=== PATIENT | male | born 1965 | race Caucasian/White ===

== ENCOUNTER 2022-06-04 09:52 | Inpatient (IN) | payer BC, SELFPAY ==
[2022-06-04] VITALS (12 sets, daily range): BP systolic 152–182; BP diastolic 90–105; PULSE 79–90; RESP 12–18; TEMP 36.7–37.2; O2SAT 96–98; BMI 34.7; BMI 33.3
--- NOTE | 2022-06-04 10:07 | RAD_ITS ---
EXAM: XR CHEST, 1 VIEW CLINICAL INDICATION: Neuro deficit, acute, stroke suspected TECHNIQUE: Frontal view of the chest. This report was created using ControlScan report generation technology. COMPARISON: None. FINDINGS: LUNGS AND PLEURAL SPACES: Unremarkable. No consolidation or edema. No pneumothorax. No effusion. HEART: Unremarkable. Cardiac silhouette not enlarged. MEDIASTINUM: Central airways and mediastinal contour are unremarkable. BONES/JOINTS: Unremarkable. SOFT TISSUES: Unremarkable. RAD/Chest 1 View IMPRESSION: No acute cardiopulmonary abnormality. Electronically Signed: Stevie Espino MD at 10:41 EDT ,
--- NOTE | 2022-06-04 10:07 | CT_ITS ---
EXAM: CT HEAD WITHOUT INTRAVENOUS CONTRAST CLINICAL INDICATION: Neuro deficit, acute, stroke suspected TECHNIQUE: Multiple axial images were obtained of the head without intravenous contrast. This CT exam was performed using one or more of the following dose reduction techniques: automated exposure control, adjustment of the mA and/or kV according to patient size, and/or use of iterative reconstruction technique. This report was created using Support[employer] report generation technology. COMPARISON: None. FINDINGS: BRAIN AND EXTRA-AXIAL SPACES: Unremarkable. No intra- or extra-axial hemorrhage. No evidence of acute infarct. No intracranial mass or mass effect. There is preservation of the joseph/white matter interface. Posterior fossa structures are unremarkable. Ventricles are appropriate for age. No hydrocephalus. Basal cisterns are patent. BONES/JOINTS: Unremarkable. No discrete lytic or blastic abnormalities. SINUSES: Mucosal thickening bilateral ethmoid sinuses and left maxillary sinus. Retention cysts right maxillary sinus. MASTOID AIR CELLS: Unremarkable. Clear. ORBITS: Visualized globes, extraocular muscles, optic nerves and retrobulbar fat appear unremarkable. CT/STROKE Brain/Head without Cont IMPRESSION: 1. No acute intracranial abnormality. 2. Mucosal thickening bilateral ethmoid sinuses and left maxillary sinus. Retention cysts right maxillary sinus. ASSESSMENT: ASPECTS ([place] Stroke Program Early CT Score) is 10. N.B. : The above Results were Read Back by Stevie Espino MD to Martínez Jefferson MD, and understanding confirmed on 06/04/2022 10:38:16 (ET). Electronically Signed: Stevie Espino MD at 10:38 EDT ,
--- NOTE | 2022-06-04 10:08 | CT_ITS ---
EXAM: CT ANGIOGRAPHY HEAD AND NECK WITH INTRAVENOUS CONTRAST CLINICAL INDICATION: diplopia TECHNIQUE: [place] [facility] [place]/head and neck CT angiography protocol performed with intravenous contrast. This CT exam was performed using one or more of the following dose reduction techniques: automated exposure control, adjustment of the mA and/or kV according to patient size, and/or use of iterative reconstruction technique. This report was created using D1G report generation technology. MIP reconstructed images were created and reviewed. CONTRAST: 100 cc of Isovue-370 IV. RADIATION DOSE: CTDIvol = 32.88 mGy, DLP = 735.37 mGy-cm. COMPARISON: None. FINDINGS: HEAD: RIGHT ANTERIOR CEREBRAL ARTERY: Unremarkable. No significant stenosis at the visualized segments. Anterior communicating artery is present. No aneurysm. RIGHT MIDDLE CEREBRAL ARTERY: Unremarkable. No significant stenosis at the visualized segments. No aneurysm. RIGHT POSTERIOR CEREBRAL ARTERY: Arises primarily from the right internal carotid artery. No occlusion or significant stenosis. No aneurysm. RIGHT INTRACRANIAL INTERNAL CAROTID ARTERY: Unremarkable. No significant stenosis. No dissection or occlusion. RIGHT INTRACRANIAL VERTEBRAL ARTERY: Terminates as the right posterior inferior cerebellar artery. No significant stenosis. No dissection or occlusion. LEFT ANTERIOR CEREBRAL ARTERY: Unremarkable. No significant stenosis at the visualized segments. No aneurysm. LEFT MIDDLE CEREBRAL ARTERY: Unremarkable. No significant stenosis at the visualized segments. No aneurysm. LEFT POSTERIOR CEREBRAL ARTERY: Arises primarily from the left internal carotid artery. No occlusion or significant stenosis. No aneurysm. LEFT INTRACRANIAL INTERNAL CAROTID ARTERY: Unremarkable. No significant stenosis. No dissection or occlusion. LEFT INTRACRANIAL VERTEBRAL ARTERY: Unremarkable. No significant stenosis. No dissection or occlusion. BASILAR ARTERY: Small basilar artery. No significant stenosis. No aneurysm. OTHER VASCULATURE: See below. NECK: RIGHT COMMON CAROTID ARTERY: Unremarkable. No significant stenosis. No dissection or occlusion. RIGHT EXTRACRANIAL INTERNAL CAROTID ARTERY: Moderate atherosclerotic changes right carotid bulb without hemodynamically significant stenosis. No dissection or occlusion. RIGHT EXTERNAL CAROTID ARTERY: Unremarkable. No occlusion. RIGHT EXTRACRANIAL VERTEBRAL ARTERY: Small caliber. No significant stenosis. No dissection or occlusion. LEFT COMMON CAROTID ARTERY: Unremarkable. No significant stenosis. No dissection or occlusion. LEFT EXTRACRANIAL INTERNAL CAROTID ARTERY: Moderate atherosclerotic changes left carotid bulb without hemodynamically significant stenosis. No dissection or occlusion. LEFT EXTERNAL CAROTID ARTERY: Unremarkable. No occlusion. LEFT EXTRACRANIAL VERTEBRAL ARTERY: Dominant. No significant stenosis. No dissection or occlusion. BRACHIOCEPHALIC AND SUBCLAVIAN ARTERIES: Unremarkable as visualized. No occlusion or significant stenosis. LUNG APICES: Unremarkable as visualized. HEAD and NECK: BONES/JOINTS: Unremarkable. No discrete lytic or blastic abnormalities. SOFT TISSUES: Unremarkable. CAROTID STENOSIS REFERENCE USING NASCET CRITERIA: % ICA stenosis = (1 - narrowest ICA diameter/diameter of distal cervical ICA) x 100. Mild - <50% stenosis. Moderate - 50-69% stenosis. Severe - 70-94% stenosis. Near occlusion - 95-99% stenosis. Occluded - 100% stenosis. CT/CTA Head AND Neck W/ Contrast IMPRESSION: 1. Moderate atherosclerotic changes right carotid bulb without hemodynamically significant stenosis. 2. Moderate atherosclerotic changes left carotid bulb without hemodynamically significant stenosis. 1. No large vessel occlusion or acute abnormality. 4. origin of the bilateral posterior cerebral arteries. 5. The right vertebral artery terminates as the posterior inferior cerebellar artery. Electronically Signed: Stevie Espino MD at 11:01 EDT ,
--- NOTE | 2022-06-04 10:09 | ED.VIS.STROK ---
HPI History of Present Illness Chief Complaint: Neuro S/Sx Informant: patient and spouse/S.O. Onset/Context/Timing Onset: Yesterday Narrative Narrative: Patient states yesterday while he was at the gas station walking around to the back of his vehicle started noticing his vision was off. In evaluating it further, he noticed it was double vision, if he covers either one of his eyes his vision is normal, but together he is seeing double. When he turns his head to the left and is looking at a visual target that is relatively straight ahead, the double vision improves, and when he focuses on the same target turning his head all the way to the right it worsens. Yesterday evening and seem to improve while he was watching TV and things seem normal but worse again this morning. He denies any visual field loss. He denies any headache, chest pain, shortness of breath, or any peripheral neurologic symptoms. No recent illness or fall/injury. He states he has felt a little off balance and his lower lip felt a little funny earlier but he denies any numbness. Yesterday after he arrived home within an hour or 2 of the onset of the symptoms, he significant other checked his blood pressure for him and it was over 200. He does have the symptoms right now and here initial blood pressure 178/105. He states he has a coronary stent and is prescribed Brilinta, aspirin, blood pressure medication, but he has not been taking any of those medications for months, he states initially he was forgetting doses, then he ran out of the medication, and just never refilled any of it. The last time he checked his blood pressure prior to yesterday was months ago. He has been feeling fine otherwise. [facility] Medical History (Updated 06/04/22 @ 11:[address] Martínez Jefferson MD) CAD (coronary artery disease) HTN (hypertension) Home Medications atorvastatin 10 mg tablet (Lipitor) mg PO QHS 06/04/22 [History Last Taken Unknown] lisinopril 10 mg tablet 10 mg PO DAILY 06/04/22 [History Last Taken Unknown] lisinopril 20 mg tablet 20 mg PO QHS 06/04/22 [History Last Taken Unknown] metoprolol tartrate 25 mg tablet mg PO BID 06/04/22 [History Last Taken Unknown] ticagrelor 90 mg tablet (Brilinta) 90 mg PO BID 06/04/22 [History Last Taken Unknown] Allergy/AdvReac Type Severity Reaction Status Date / Time No Known Allergies Allergy Verified 06/04/22 09:53 Surgical History (Updated 06/04/22 @ 10:[address] Martínez Jefferson MD) History of coronary artery stent placement Social History Smoking Status: Never smoker ROS ROS ED Constitutional Constitutional ED: Denies chills or fever(s) Eyes Eyes: Reports change in vision and diplopia; Denies blurry vision or tunnel vision ENT ENT ED: Denies rhinorrhea or sore throat Cardiovascular Cardiovascular: Denies chest pain or palpitations Respiratory/Chest Respiratory/Chest: Denies cough or dyspnea Gastrointestinal Gastrointestinal: Denies abdominal pain, diarrhea, nausea or vomiting Genitourinary Genitourinary ED: Denies dysuria or hematuria Musculoskeletal Musculoskeletal: Denies back pain or neck pain Integumentary Denies abscess or rash Neurologic Neurologic: Reports as per HPI and disequilibrium; Denies headache(s), paresthesias or weakness Psychiatric Psychiatric: Denies anxiety or suicidal thoughts EXAM Physical Exam Const Vital Signs: 06/04/22 09:54 06/04/22 10:16 06/04/22 10:17 Temperature 98.4 F Temperature Source Temporal Pulse Rate 87 90 Respiratory Rate 16 18 Blood Pressure 178/105 H 152/93 H Blood Pressure Mean 129 112 Pulse Ox 98 97 96 Oxygen Delivery Method Room Air Room Air Room Air 06/04/22 10:47 06/04/22 11:14 Temperature Temperature Source Pulse Rate 83 83 Respiratory Rate 12 14 Blood Pressure 163/93 H 160/93 H Blood Pressure Mean 116 115 Pulse Ox 98 98 Oxygen Delivery Method Room Air Room Air Positive well nourished and well developed General Appearance ED: well developed and NAD HEENT Reports moist mucous membranes normocephalic and atraumatic Eyes PERRL and EOMs intact bilaterally Neck full ROM and supple Resp normal respiratory effort and clear to auscultation bilaterally Cardio regular rate, regular rhythm and no murmurs GI non-tender and non-distended Auscultation: normoactive bowel sounds Palpation: soft Back/Spine no CVA tenderness General Back: other FROM Extremity normal to inspection General Extremety ED: Negative for edema, pulses abnormal or tenderness General Extremity: Negative for edema or pulses abnormal Neuro oriented x3, CN's II-XII intact bilaterally, no sensory deficits noted and gait normal Neuro Narrative: Normal ROM chest. Normal [id number] and [id number]-[id number] bilaterally. Normal speech no aphasia or dysarthria. Normal visual pimentel exam. Sensorium / Orientation: awake and alert Motor Exam: strength 5/5 throughout Skin no rashes or lesions noted and no wounds NIHSS NIHSS Initial: 1a Level of Consciousness: 0 1b LOC Questions (Score 2 if aphasic/stupor): 0 1c LOC Commands (Only score 1st attempt): 0 2 Best Gaze (If aphasic, use reflexive mvmts.): 0 3 Visual: 0 4 Facial Palsy: 0 5 Motor Arm Right (UN = amputation/fusion): 0 5 Motor Arm Left: 0 6 Motor Leg Right: 0 6 Motor Leg Left: 0 7 Limb ataxia (Only + if out of proportion): 0 8 Sensory (Aphasia/stupor=0 or 1, coma=2): 0 9 Best Language: 0 10 Dysarthria (mute, coma=2, intubated=UN): 0 11 Extinction and Inattention (only scored if +): 0 Total Score: 0 MDM MDM MDM Narrative Medical decision making narrative: Patient was worked up with regards to his heart and possible stroke work-up, given his blood pressure and symptoms. CT and CTA were negative for any acute, I reviewed the images in the radiologist's interpretation. My interpretation of the CT agrees with that of the radiologist. His EKG shows a bifascicular block, there is no old available to compare with, he saw a log buncher at [facility] remotely and never followed up basically and stopped taking his medications, and has never had an EKG here. His heart enzymes are slightly elevated and his creatinine is slightly elevated, again without an old value to compare with. At this time he has no symptoms of angina and the significance of this is undetermined at this time. His blood pressure came down a little with observation while waiting for test results, he is now in the 160s and states that his vision is back to normal. It certainly may be blood pressure mediated, however my recommendation to him would be to stay to get an MRI of the brain, continued observation, blood pressure management, and trending of his troponin. He is amenable to that. Discussed with hospitalist. History & Record Review Additional record(s) reviewed:: No prior records Lab Data Attestation: I reviewed the patient's lab results. Labs: Laboratory Results - last 24 hr 06/04/22 06/04/22 06/04/22 10:15 10:15 10:15 WBC 11.0 RBC 7.88 H Hgb 15.9 Hct 52.3 MCV 66.4 L MCH 20.2 L MCHC 30.4 L RDW Std Deviation 38.5 RDW Coeff of Jacqueline 19.0 H Plt Count 286 MPV 10.8 Immature Gran % (Auto) 0.500 Neut % (Auto) 72.3 H Lymph % (Auto) 16.9 L [place] % (Auto) 8.3 Eos % (Auto) 1.3 Baso % (Auto) 0.7 Absolute Neuts (auto) 8.0 H Absolute Lymphs (auto) 1.86 Nucleated RBC % 0 PT 14.6 INR 1.2 APTT 29.1 Sodium 136 Potassium 4.2 Chloride 104 Carbon Dioxide 25.0 Anion Gap 7 BUN 16 Creatinine 1.37 H Estim Creat Clear Calc 54.33 Est GFR (MDRD) Af Amer 69 Est GFR (MDRD) Non-Af 57 L BUN/Creatinine Ratio 11.7 Glucose 125 H Calcium 9.5 Troponin I High Sens 99 H POC Glucose 06/04/22 10:18 WBC RBC Hgb Hct MCV MCH MCHC RDW Std Deviation RDW Coeff of Jacqueline Plt Count MPV Immature Gran % (Auto) Neut % (Auto) Lymph % (Auto) [place] % (Auto) Eos % (Auto) Baso % (Auto) Absolute Neuts (auto) Absolute Lymphs (auto) Nucleated RBC % PT INR APTT Sodium Potassium Chloride Carbon Dioxide Anion Gap BUN Creatinine Estim Creat Clear Calc Est GFR (MDRD) Af Amer Est GFR (MDRD) Non-Af BUN/Creatinine Ratio Glucose Calcium Troponin I High Sens POC Glucose 129 H Radiography Chest X-Ray - ED: 1 View, Read by ED Physician, No Acute Disease and No Infiltrates Diagnostic Testing: Clinical Impression(s) from Imaging Studies Brain CT 06/04/22 10:07 IMPRESSION: 1. No acute intracranial abnormality. 2. Mucosal thickening bilateral ethmoid sinuses and left maxillary sinus. Retention cysts right maxillary sinus. ASSESSMENT: ASPECTS ([place] Stroke Program Early CT Score) is 10. N.B. : The above Results were Read Back by Stevie Espino MD to Martínez Jefferson MD, and understanding confirmed on 06/04/2022 10:38:16 (ET). Electronically Signed: Stevie Espino MD at 10:38 EDT , ADDENDUM: 06/04/22 1045 IMPRESSION: 1. No acute intracranial abnormality. 2. Mucosal thickening bilateral ethmoid sinuses and left maxillary sinus. Retention cysts right maxillary sinus. ASSESSMENT: ASPECTS ([place] Stroke Program Early CT Score) is 10. N.B. : The above Results were Read Back by Stevie Espino MD to Martínez Jefferson MD, and understanding confirmed on 06/04/2022 10:38:16 (ET). Electronically Signed: Stevie Espino MD at 10:38 EDT , Chest X-Ray 06/04/22 10:07 IMPRESSION: No acute cardiopulmonary abnormality. Electronically Signed: Stevie Espino MD at 10:41 EDT , Head/Neck CTA 06/04/22 10:08 IMPRESSION: 1. Moderate atherosclerotic changes right carotid bulb without hemodynamically significant stenosis. 2. Moderate atherosclerotic changes left carotid bulb without hemodynamically significant stenosis. 1. No large vessel occlusion or acute abnormality. 4. origin of the bilateral posterior cerebral arteries. 5. The right vertebral artery terminates as the posterior inferior cerebellar artery. Electronically Signed: Stevie Espino MD at 11:01 EDT , Rhythm Strip Rhythm Strip: Sinus Rhythm Rate: 90 Ectopy: None EKG Initial EKG: Attestation: I personally reviewed and interpreted this EKG as follows: Interpretation: Sinus Rhythm, No Acute Injury Pattern, RBBB and LAFB Prior EKG tracings: not available for review Prior: No Prior Management Discussion w/another healthcare provider: Hospitalist Stroke Documentation Questions Stroke Team Activated: No (timing > 24h) IV Thrombolytic Administered: No Discharge Plan Dx/Rx/DC Orders Clinical Impression: Diplopia, Accelerated hypertension, Elevated troponin, Acute renal insufficiency Disposition Disposition: Acute Care Hospital [facility]
[2022-06-04 10:26] LABS: Absolute Lymphocyte Count 1.86 X10^3/uL (0.83-4.51); Basophil# 0.08 X10^3/uL; Basophil% 0.7 % (0-1); Eosinophil# 0.14 X10^3/uL; Eosinophils% 1.3 % (0-5); Hematocrit 52.3 % (40-54); Hemoglobin 15.9 g/dL (13.0-16.5); Lymphocyte # 1.86 X10^3/ul (0.83-4.51); Lymphocyte % 16.9 % (19-41); Mean Corp Hgb Conc 30.4 g/dL (32-36); Mean Corpuscular Hgb 20.2 pg (27.0-32.0); Mean Corpuscular Volume 66.4 fL (80-94); Mean Platelet Vol. 10.8 fl (6.2-12.0); Monocyte# 0.91 X10^3/uL; Monocyte% 8.3 % (0-10); NRBC Flagged by Analyzer 0 % (0-5); Neutrophil # 7.95 X10^3/uL (2.7-7.7); Neutrophil % 72.3 % (47-70); Platelet Count 286 K/mm3 (150-450); RBC Distribution Width SD 38.5 fl (35.1-43.9); Red Blood Count 7.88 M/mm3 (4.6-6.2)
[2022-06-04 10:40] LABS: Anion Gap 7 (5-15); BUN 16 mg/dL (7-18); BUN/Creat Ratio 11.7 RATIO (10-20); Calcium,Total 9.5 mg/dL (8.5-10.1); Chloride 104 mmol/L (98-107); Creatinine, Serum 1.37 mg/dL (0.70-1.30); EST Glomerular Filtration Rate 57 mL/min (>60); Est Glom Filt Rate - Afr Amer 69 mL/min (>60); Estimated Creatinine Clearance 54.33 ml/min; Glucose 125 mg/dL (74-106); Potassium 4.2 mmol/L (3.5-5.1); Sodium Level 136 mmol/L (136-145); Troponin-I HS 99 pg/mL (3.0-78.0)
[2022-06-04 10:40] LABS: Bedside Glucose 129 mg/dL (74-106)
[2022-06-04 10:51] LABS: International Normalized Ratio 1.2; Prothrombin Time (Protime)PT. 14.6 SECONDS (11.7-14.9)
[2022-06-04 10:52] LABS: Partial Thromboplast Time 29.1 Seconds (24.1-36.2)
--- NOTE | 2022-06-04 11:35 | HP.PCM.HOS_ITS ---
HPI - General General Date of Admission: 06/04/22 Date of Service: 06/04/22 Chief Complaint: neuro symptoms HPI Narrative HUONG UNDERWOOD, is a 57 M with a PMH as outlined who presents via the ED on 06/04/2022 with a complaitn of double vision. He says he was walking to his car at the gas station and subsequently realised his vision was impaired. HE was hving double vision which occured when both eyes were opened. He denied any slurred speech, chest pain, weakness in any extremities, numbness or tingling. He hadnt had such symptoms before. Review of systems is otherwise negative. Patient also says his symptoms occurred yesterday and he went home afterwards. His significant other checked his blood pressure and was markedly elevated at over 200 systolic. Patient does have a history of CAD with stent placement but has not been taking any of his antiplatelets or blood pressure medications for several months. Vitals in the ED at time of review were blood pressure 160/93, pulse of 83 and respiratory rate of 14. He was saturating at 98% on room air. CBC showed hemoglobin of 15.9 and WBC of 11 as well as platelets of 286. INR was 1.2. Chemistry shows sodium of 136 and creatinine of 1.37 and potassium of 4.2. Initial troponin was 99. CT of the brain showed no acute intracranial pathology and showed mucosal thickening of bilateral ethmoid sinuses and left maxillary sinus. CT of the head and neck showed moderate atherosclerotic changes of the carotid bulbs bilaterally, without hemodynamically significant stenosis and no large vessel occlusion or acute abnormality. He has been admitted to be managed for diplopia concerning for CVA as well as hypertensive urgency and elevated troponins. [facility] Medical History (Updated 06/04/22 @ 14:[address] Colleen Blanco MD) CAD (coronary artery disease) HTN (hypertension) Home Medications atorvastatin 40 mg tablet 80 mg PO DAILY CHOLESTEROL 06/04/22 [History Last Ej en Unknown] lisinopril 10 mg tablet 10 mg PO DAILY BP 06/04/22 [History Last Taken Unknown] lisinopril 20 mg tablet 20 mg PO DAILY BP 06/04/22 [History Last Taken 06/04/22] metoprolol tartrate 25 mg tablet 25 mg PO BID HEART 06/04/22 [History Last Taken Unknown] ticagrelor 90 mg tablet (Brilinta) 90 mg PO BID BLOOD THINNER 06/04/22 [History Last Taken Unknown] Allergy/AdvReac Type Severity Reaction Status Date / Time No Known Allergies Allergy Verified 06/04/22 09:53 Surgical History (Updated 06/04/22 @ 10:[address] Martínez Jefferson MD) History of coronary artery stent placement Social History Smoking Status: Current every day smoker tobacco type: cigarettes ROS Constitutional Constitutional: Denies anorexia, chills, fatigue, fever(s) or weakness Eyes Eyes: Reports change in vision and other Details: Double vision ENT HEENT: Denies dysphagia, headache(s), hearing loss, nasal congestion, sinus pressure or sore throat Cardiovascular Cardiovascular: Denies chest pain, dyspnea on exertion, edema, lightheadedness, orthopnea, palpitations, rapid heart rate or syncope Respiratory/Chest Respiratory/Chest: Denies cough, dyspnea, productive cough, shortness of breath at rest or shortness of breath with exertion Gastrointestinal Gastrointestinal: Denies abdominal pain, constipation, diarrhea, nausea or vomiting Genitourinary Genitourinary: Denies burning urination, dysuria or urinary urgency Musculoskeletal Musculoskeletal: Denies arthralgias, back pain or joint pain Neurologic Neurologic: Denies confusion, disequilibrium, dizziness, focal weakness, headache(s), seizures or syncope Psychiatric Psychiatric: Denies anxiety or depression Hematologic/Lymphatic Hematologic/Lymphatic: Denies anemia Vital Signs Vital Signs Vital Signs: 06/04/22 09:54 06/04/22 10:16 06/04/22 10:17 Temperature 98.4 F Temperature Source Temporal Pulse Rate 87 90 Respiratory Rate 16 18 Blood Pressure 178/105 H 152/93 H Blood Pressure Mean 129 112 Pulse Ox 98 97 96 Oxygen Delivery Method Room Air Room Air Room Air 06/04/22 10:47 06/04/22 11:14 Temperature Temperature Source Pulse Rate 83 83 Respiratory Rate 12 14 Blood Pressure 163/93 H 160/93 H Blood Pressure Mean 116 115 Pulse Ox 98 98 Oxygen Delivery Method Room Air Room Air Weight Weight: 215 lb 3.197 oz Body Mass Index (BMI) 34.7 Physical Exam Const alert, oriented x3 and no apparent distress General Appearance: cooperative HEENT normocephalic, head/scalp atraumatic, hearing grossly normal bilaterally and moist oral mucous membranes Mouth: oral and palatal mucosa normal Eyes PERRL, EOMs intact bilaterally and conjunctivae normal Neck no lymphadenopathy, supple and no JVD Resp normal respiratory effort, no retractions, no use of accessory muscles and clear to auscultation bilaterally Cardio regular rate, regular rhythm, S1 normal heart sound, S2 normal heart sound and no murmurs GI normal to inspection, nondistended, normoactive bowel sounds, soft to palpation, non-tender and non-distended Extremity normal to inspection, full ROM and no clubbing, cyanosis or edema Neuro oriented x3, moves all extremities and no focal motor deficits Neuro Narrative: Patient having diplopia. States when both eyes are open he has double vision. However the diplopia does not occur when he has just one eye open Sensorium / Orientation: awake and alert Motor Exam: strength 5/5 throughout Psych affect normal Results Lab / Micro Data Result Diagrams: 06/04/22 10:15 06/04/22 10:15 Labs: Laboratory Results - last 24 hr 06/04/22 10:15: WBC 11.0, RBC 7.88 H, Hgb 15.9, Hct 52.3, MCV 66.4 L, MCH 20.2 L , MCHC 30.4 L, RDW Std Deviation 38.5, RDW Coeff of Jacqueline 19.0 H, Plt Count 286, MPV 10.8, Immature Gran % (Auto) 0.500, Neut % (Auto) 72.3 H, Lymph % (Auto) 16.9 L, Adams % (Auto) 8.3, Eos % (Auto) 1.3, Baso % (Auto) 0.7, Absolute Neuts (auto) 8.0 H, Absolute Lymphs (auto) 1.86, Nucleated RBC % 0 06/04/22 10:15: PT 14.6, INR 1.2, APTT 29.1 06/04/22 10:15: Sodium 136, Potassium 4.2, Chloride 104, Carbon Dioxide 25.0, Anion Gap 7, BUN 16, Creatinine 1.37 H, Estim Creat Clear Calc 54.33, Est GFR (MDRD) Af Amer 69, Est GFR (MDRD) Non-Af 57 L, BUN/Creatinine Ratio 11.7, Glucose 125 H, Calcium 9.5, Troponin I High Sens 99 H 06/04/22 10:18: POC Glucose 129 H Rhythm Strip Rhythm Strip: Sinus Rhythm Rate: 90 Ectopy: None Radiology Impression Brain CT 06/04/22 10:07 IMPRESSION: 1. No acute intracranial abnormality. 2. Mucosal thickening bilateral ethmoid sinuses and left maxillary sinus. Retention cysts right maxillary sinus. ASSESSMENT: ASPECTS ([place] Stroke Program Early CT Score) is 10. N.B. : The above Results were Read Back by Stevie Espino MD to Martínez Jefferson MD, and understanding confirmed on 06/04/2022 10:38:16 (ET). Electronically Signed: Stevie Espino MD at 10:38 EDT , ADDENDUM: 06/04/22 1045 IMPRESSION: 1. No acute intracranial abnormality. 2. Mucosal thickening bilateral ethmoid sinuses and left maxillary sinus. Retention cysts right maxillary sinus. ASSESSMENT: ASPECTS ([place] Stroke Program Early CT Score) is 10. N.B. : The above Results were Read Back by Stevie Espino MD to Martínez Jefferson MD, and understanding confirmed on 06/04/2022 10:38:16 (ET). Electronically Signed: Stevie Espino MD at 10:38 EDT , Chest X-Ray 06/04/22 10:07 IMPRESSION: No acute cardiopulmonary abnormality. Electronically Signed: Stevie Espino MD at 10:41 EDT , Head/Neck CTA 06/04/22 10:08 IMPRESSION: 1. Moderate atherosclerotic changes right carotid bulb without hemodynamically significant stenosis. 2. Moderate atherosclerotic changes left carotid bulb without hemodynamically significant stenosis. 1. No large vessel occlusion or acute abnormality. 4. origin of the bilateral posterior cerebral arteries. 5. The right vertebral artery terminates as the posterior inferior cerebellar artery. Electronically Signed: Stevie Espino MD at 11:01 EDT , Assessment & Plan Assessment/Plan (1) Elevated troponin: (2) Diplopia: (3) Acute renal insufficiency: (4) Hypertensive urgency: PLAN: Plan #Diplopia * new onset, concerning for posterior circulation stroke * admit to PCU * Symptoms started yesterday and has persisted. His blood pressure when his spouse checked was also markedly elevated at around 220 systolic. * Diplopia could also be due to malignant hypertension * CT of the brain showed no acute intracranial pathology. CT of the head and neck also showed no hemodynamically significant stenosis * Will order MRI of the brain tomorrow to rule out a stroke conclusively * Hold BP meds for now. IV labetalol per stroke protocol to bring down blood pressure slowly. PT OT consulted. Fall precautions. 2D echo ordered. * To consult neurology based on results of MRI. * #Hypertensive urgency * Blood pressure was markedly elevated yesterday at more than 1020 systolic. Patient did not come into the ED then * He does have a history of hypertension but says he has not taken his medicati on for several months. * On lisinopril and metoprolol at home. We will hold these in light of concern about stroke. IV labetalol as needed to bring down blood pressure slowly as per stroke protocol. * Blood pressure was 178/102 at time of review. * 2D echo ordered. Resume blood pressure medications tomorrow if MRI of the brain is negative for stroke. * #Elevated troponin * Initial troponin is 99. Patient denies any chest pain. The elevated troponin may possibly be due to troponin leak from markedly elevated blood pressure. * We will cycle troponins. Already on aspirin and Brilinta as he has a history of CAD with stents placement in 2013. * will resume aspirin and Brilinta as well as statin. * 2D echo ordered * #Hyperlipidemia: on statin DVT prophylaxis: lovenox. Code status; full code * Patient counseled extensively about different types of CODE STATUS including full code, DNR CCA and DNR CCA. Patient elects to be full code. * Total [id number] time 17 minutes. Total time spent on evaluation and management of patient, reviewing chart and specialist notes, discussing plan with patient and his , discussion with nursing and ancillary staff as well as documentation: 79 mins Charges/Coding Visit Charges Inpatient E&M: 79361 Init Hosp L3 Procedures Hospitalists Procedures: 01748 Advncd Care Plan 30 Min
--- NOTE | 2022-06-04 12:30 | ED.RN ---
PT NIH REMAINS 0. PER DR. HODGE, PT NIH REMAINS 0 AND NIH CAN BE CANCELLED.
--- NOTE | 2022-06-04 14:12 | MRI_ITS ---
STUDY: MRI BRAIN WITHOUT CONTRAST REASON FOR EXAM: Male, 57 years old. diplopia TECHNIQUE: Standardized multiplanar fat and water weighted pulse sequences were obtained. COMPARISON: Head CT dated June 04, 2022 FINDINGS: Normal size of the ventricles and extra-axial spaces for the patient''s age. There are a limited number of small white matter hyperintensities, distributed throughout the deep white matter tracts of the cerebral hemispheres, consistent with mild chronic white matter ischemic changes. There is no evidence for recent intracranial ischemia or other cause of cytotoxic edema on diffusion weighted imaging (DWI). Normal T2* images of the brain without demonstrated susceptibility artifact. There is no demonstrated hemosiderin stain. There are no demyelinating plagues of the supratentorial brain, brainstem or cerebellum. There are no findings suspicious for multiple sclerosis (MS). Normal bilateral basal ganglia. Normal thalami. There is no extra-axial fluid accumulation. Normal flow voids within the major intracranial circulation suggesting patency by spin echo criteria. Normal sella turcica, pituitary gland, infundibular stalk, optic chiasm and hypothalamus. Normal tectal plate and pineal gland. Normal midbrain, deonna and medulla. Normal cerebellum. Normal basal cisterns. Normal bilateral temporal bones. Normal bilateral internal auditory canals. No demonstrated orbital abnormality, within the constraints of a routine brain study. Moderate mucus opacification of the bilateral ethmoid air cells and a moderate-sized mucus retention cyst of the right maxillary sinus. Normal calvarium and skull base. Normal visualized soft tissue structures. Normal visualized upper cervical spine. MRI/Brain without Contrast IMPRESSION: 1. Involutional and mild chronic ischemic changes of the brain, as described above. 2. No demonstrated acute infarct or intracranial hemorrhage or significant abnormality 3. Moderate mucus opacification of the bilateral ethmoid air cells and a moderate-sized mucus retention cyst of the right maxillary sinus. Electronically Signed: Yuniel Smith MD at 13:19 EDT Reading Location ID and State: [facility] / [place] , Service support ,
[2022-06-04 15:11] LABS: Troponin-I HS 81 pg/mL (3.0-78.0)
[2022-06-04 15:29] LABS: Hemoglobin A1c 5.7 % (3.8-5.6)
[2022-06-04 17:19] LABS: Troponin-I HS 77 pg/mL (3.0-78.0)
[2022-06-04] MEDS: TICAGRELOR 90 MG TABLET PO (21:01)
[2022-06-04] MEDS: Atorvastatin Calcium 80 MG Tablet PO (21:02)
[2022-06-05 00:58] VITALS: BP 146/96; PULSE 76; RESP 18; TEMP 36.5; O2SAT 99
[2022-06-05 01:24] VITALS: BMI 33.3
[2022-06-05 04:58] VITALS: BP 119/88; PULSE 67; RESP 16; TEMP 36.4; O2SAT 98
[2022-06-05 05:00] VITALS: BMI 33.3
[2022-06-05 06:03] LABS: Anion Gap 7 (5-15); BUN 18 mg/dL (7-18); BUN/Creat Ratio 14.9 RATIO (10-20); Calcium,Total 9.2 mg/dL (8.5-10.1); Chloride 105 mmol/L (98-107); Cholesterol 223 mg/dL (200); Creatinine, Serum 1.21 mg/dL (0.70-1.30); EST Glomerular Filtration Rate 66 mL/min (>60); Est Glom Filt Rate - Afr Amer 80 mL/min (>60); Estimated Creatinine Clearance 61.52 ml/min; Glucose 115 mg/dL (74-106); High Density Lipoprotein 32 mg/dL; Potassium 4.1 mmol/L (3.5-5.1); Sodium Level 137 mmol/L (136-145); Triglycerides 194 mg/dL; Very Low Density Lipoprotein 39 mg/dL (5-40)
[2022-06-05 06:19] LABS: Absolute Lymphocyte Count 2.95 X10^3/uL (0.83-4.51); Absolute Neutrophil Count 7.7 X10^3/uL (2.0-7.7); Basophil# 0.08 X10^3/uL; Basophil% 0.7 % (0-1); Eosinophil# 0.25 X10^3/uL; Eosinophils% 2.1 % (0-5); Hematocrit 51.2 % (40-54); Hemoglobin 15.6 g/dL (13.0-16.5); Lymphocyte # 2.95 X10^3/ul (0.83-4.51); Lymphocyte % 24.2 % (19-41); Mean Corp Hgb Conc 30.5 g/dL (32-36); Mean Corpuscular Hgb 20.3 pg (27.0-32.0); Mean Corpuscular Volume 66.5 fL (80-94); Mean Platelet Vol. 10.9 fl (6.2-12.0); Monocyte# 1.13 X10^3/uL; Monocyte% 9.3 % (0-10); NRBC Flagged by Analyzer 0 % (0-5); Neutrophil # 7.71 X10^3/uL (2.7-7.7); Neutrophil % 63.1 % (47-70); Platelet Count 282 K/mm3 (150-450); RBC Distribution Width CV 18.8 % (11.6-14.6); White Blood Count 12.2 K/mm3 (4.4-11.0)
[2022-06-05 08:30] VITALS: BP 164/99; PULSE 78; RESP 16; TEMP 36.6; O2SAT 98
[2022-06-05] MEDS: TICAGRELOR 90 MG TABLET PO (08:40)
[2022-06-05] MEDS: Aspirin 81 MG TAB.CHEW PO (08:40)
[2022-06-05] MEDS: Enoxaparin 40 MG/0.4 ML Syringe SC (08:40)
[2022-06-05 09:07] VITALS: O2SAT 95
--- NOTE | 2022-06-05 10:00 | PCM.CONS.C ---
Assessment & Plan Assessment/Plan (1) Elevated troponin: PLAN: Likely secondary to hypertensive urgency. Patient completely asymptomatic. History of coronary artery disease. Recommend evaluation with stress test. Patient wishes to do it as outpatient. In echocardiogram has already been ordered for the patient. Patient however does not want to have it done and wishes to go home and have outpatient follow-up. Continue aspirin. Patient's last percutaneous intervention was more than 8 years ago. Stop ticagrelor. Start on Plavix. (2) Hypertensive urgency: PLAN: Improved but still not optimal. Recommend starting on hydrochlorothiazide 12.5 mg once daily. (3) CAD (coronary artery disease): PLAN: See #1 above. (4) Dyslipidemia: PLAN: Started on statins. (5) Diplopia: PLAN: For MRI today to rule out CVA. (6) Noncompliance: PLAN: Patient counseled extensively regarding the importance of compliance with medical follow-up and medications. HPI Consult Data Date of Consult: 06/05/22 HPI Narrative HPI Narrative: The patient has a few of coronary artery disease with percutaneous intervention with 2 drug-eluting stents in 2013 at the [facility]. Per patient, he has had an FL at the time. He also has history of dyslipidemia and hypertension. He has not been compliant with medical follow-up or with his medications for the last few years. He presented to the emergency room yesterday with complaints of diplopia. According to his partner, his blood pressure at home was systolic in the 230s and diastolic in the 170s. We are consulted because his troponins were noted to be minimally elevated. Please note that the patient does not describe any symptoms of chest pains or shortness of breath at all. He denies any palpitations. No orthopnea. No PND. No ankle edema. [facility] Medical History (Updated 06/05/22 @ 10:[address] Leidy Melendez MD) CAD (coronary artery disease) HTN (hypertension) Home Medications atorvastatin 40 mg tablet 80 mg PO DAILY CHOLESTEROL 06/04/22 [History Last Taken Unknown] lisinopril 10 mg tablet 10 mg PO DAILY BP 06/04/22 [History Last Taken Unknown] lisinopril 20 mg tablet 20 mg PO QHS BP 06/04/22 [History Last Taken 06/04/22] metoprolol tartrate 25 mg tablet 25 mg PO BID HEART 06/04/22 [History Last Taken Unknown] ticagrelor 90 mg tablet (Brilinta) 90 mg PO BID BLOOD THINNER 06/04/22 [History Last Taken Unknown] Allergy/AdvReac Type Severity Reaction Status Date / Time No Known Allergies Allergy Verified 06/04/22 09:53 Family History (Updated 06/05/22 @ 08:35 by Keri Vu) Other History of coronary artery stent placement Surgical History (Updated 06/05/22 @ 08:35 by Keri Vu) History of coronary artery stent placement Social History Smoking Status: Current every day smoker tobacco type: cigarettes Physical Exam Narrative Obese. Ambulating in the room. No discomfort. Heart sounds 1 and 2 are normal. No murmurs or rubs are noted. Chest clear to auscultation bilaterally. Abdomen soft. Bowel sounds positive. Alert oriented x3. No ankle edema noted. Risk Stratification Risk Stratification Applicable: No Objective Data Vital Signs: Vital Signs Temp Pulse Resp BP Pulse Ox O2 Del Method 97.9 F 78 16 164/99 H 95 Room Air 06/05/22 08:30 06/05/22 08:30 06/05/22 08:30 06/05/22 08:30 06/05/22 09:07 06/05/22 09:07 Oxygen Delivery Method Room Air Weight: 206 lb 4 oz Body Mass Index (BMI) 33.3 Intake & Output: Intake and Output for Last 24 Hours 06/03/22 06/04/22 06/05/22 22:59 23:59 23:59 Intake Total 600 / 600 Balance 600 / 600 Lab / Micro Data Attestation: I reviewed the patient's lab results. Result Diagrams: 06/05/22 04:48 06/05/22 04:48 Labs: Laboratory Results - last 24 hr 06/04/22 10:15: WBC 11.0, RBC 7.88 H, Hgb 15.9, Hct 52.3, MCV 66.4 L, MCH 20.2 L, MCHC 30.4 L, RDW Std Deviation 38.5, RDW Coeff of Jacqueline 19.0 H, Plt Count 286, MPV 10.8, Immature Gran % (Auto) 0.500, Neut % (Auto) 72.3 H, Lymph % (Auto) 16.9 L, Phillips % (Auto) 8.3, Eos % (Auto) 1.3, Baso % (Auto) 0.7, Absolute Neuts (auto) 8.0 H, Absolute Lymphs (auto) 1.86, Nucleated RBC % 0 06/04/22 10:15: PT 14.6, INR 1.2, APTT 29.1 06/04/22 10:15: Sodium 136, Potassium 4.2, Chloride 104, Carbon Dioxide 25.0, Anion Gap 7, BUN 16, Creatinine 1.37 H, Estim Creat Clear Calc 54.33, Est GFR (MDRD) Af Amer 69, Est GFR (MDRD) Non-Af 57 L, BUN/Creatinine Ratio 11.7, Glucose 125 H, Calcium 9.5, Troponin I High Sens 99 H 06/04/22 10:15: Hemoglobin A1c 5.7 H 06/04/22 10:18: POC Glucose 129 H 06/04/22 14:31: Troponin I High Sens 81 H 06/04/22 16:45: Troponin I High Sens 77 06/05/22 04:48: WBC 12.2 H, RBC 7.70 H, Hgb 15.6, Hct 51.2, MCV 66.5 L, MCH 20.3 L, MCHC 30.5 L, RDW Std Deviation 38.0, RDW Coeff of Jacqueline 18.8 H, Plt Count 282, MPV 10.9, Immature Gran % (Auto) 0.600, Neut % (Auto) 63.1, Lymph % (Auto) 24.2, Phillips % (Auto) 9.3, Eos % (Auto) 2.1, Baso % (Auto) 0.7, Absolute Neuts (auto) 7.7, Absolute Lymphs (auto) 2.95, Nucleated RBC % 0 06/05/22 04:48: Sodium 137, Potassium 4.1, Chloride 105, Carbon Dioxide 25.0, Anion Gap 7, BUN 18, Creatinine 1.21, Estim Creat Clear Calc 61.52, Est GFR (MDRD) Af Amer 80, Est GFR (MDRD) Non-Af 66, BUN/Creatinine Ratio 14.9, Glucose 115 H, Calcium 9.2, Triglycerides 194, Cholesterol 223 H, LDL Cholesterol 152 H, VLDL Cholesterol 39, HDL Cholesterol 32 L Rhythm Strip Rhythm Strip: Sinus Rhythm Rate: 90 Ectopy: None Cardiology Labs/Tests 06/04/22 10:15: WBC 11.0, RBC 7.88 H, Hgb 15.9, Hct 52.3, MCV 66.4 L, MCH 20.2 L, MCHC 30.4 L, Plt Count 286, MPV 10.8, Immature Gran % (Auto) 0.500, Neut % (Auto) 72.3 H, Lymph % (Auto) 16.9 L, Phillips % (Auto) 8.3, Eos % (Auto) 1.3, Baso % (Auto) 0.7, Absolute Neuts (auto) 8.0 H, Nucleated RBC % 0 06/04/22 10:15: PT 14.6, INR 1.2, APTT 29.1 06/04/22 10:15: Sodium 136, Potassium 4.2, Chloride 104, Carbon Dioxide 25.0, Anion Gap 7, BUN 16, Creatinine 1.37 H, Est GFR (MDRD) Af Amer 69, Est GFR (MDRD) Non-Af 57 L, BUN/Creatinine Ratio 11.7, Glucose 125 H, Calcium 9.5 06/04/22 10:15: Hemoglobin A1c 5.7 H 06/05/22 04:48: WBC 12.2 H, RBC 7.70 H, Hgb 15.6, Hct 51.2, MCV 66.5 L, MCH 20.3 L, MCHC 30.5 L, Plt Count 282, MPV 10.9, Immature Gran % (Auto) 0.600, Neut % (Auto) 63.1, Lymph % (Auto) 24.2, Phillips % (Auto) 9.3, Eos % (Auto) 2.1, Baso % (Auto) 0.7, Absolute Neuts (auto) 7.7, Nucleated RBC % 0 06/05/22 04:48: Sodium 137, Potassium 4.1, Chloride 105, Carbon Dioxide 25.0, Anion Gap 7, BUN 18, Creatinine 1.21, Est GFR (MDRD) Af Amer 80, Est GFR (MDRD) Non-Af 66, BUN/Creatinine Ratio 14.9, Glucose 115 H, Calcium 9.2, Triglycerides 194, Cholesterol 223 H, LDL Cholesterol 152 H, VLDL Cholesterol 39, HDL Cholesterol 32 L Rhythm: EKG: Sinus rhythm. Right bundle branch block. Possible old inferior FL ECHO: Stress Test: Cardiac Cath: PCI: CT Surgery: Holter monitor: EPS: PPM: CXR: Chest CT Scan: Radiography Diagnostic Testing: Radiology Impression Brain CT 06/04/22 10:07 IMPRESSION: 1. No acute intracranial abnormality. 2. Mucosal thickening bilateral ethmoid sinuses and left maxillary sinus. Retention cysts right maxillary sinus. ASSESSMENT: ASPECTS ([place] Stroke Program Early CT Score) is 10. N.B. : The above Results were Read Back by Stevie Espino MD to Martínez Jefferson MD, and understanding confirmed on 06/04/2022 10:38:16 (ET). Electronically Signed: Stevie Espino MD at 10:38 EDT , ADDENDUM: 06/04/22 1045 IMPRESSION: 1. No acute intracranial abnormality. 2. Mucosal thickening bilateral ethmoid sinuses and left maxillary sinus. Retention cysts right maxillary sinus. ASSESSMENT: ASPECTS ([place] Stroke Program Early CT Score) is 10. N.B. : The above Results were Read Back by Stevie Espino MD to Martínez Jeffersno MD, and understanding confirmed on 06/04/2022 10:38:16 (ET). Electronically Signed: Stevie Espino MD at 10:38 EDT Reading Location ID and State: [facility] / [place] [employer] , Service support , Chest X-Ray 06/04/22 10:07 IMPRESSION: No acute cardiopulmonary abnormality. Electronically Signed: Stevie Espino MD at 10:41 EDT , Head/Neck CTA 06/04/22 10:08 IMPRESSION: 1. Moderate atherosclerotic changes right carotid bulb without hemodynamically significant stenosis. 2. Moderate atherosclerotic changes left carotid bulb without hemodynamically significant stenosis. 1. No large vessel occlusion or acute abnormality. 4. origin of the bilateral posterior cerebral arteries. 5. The right vertebral artery terminates as the posterior inferior cerebellar artery. Electronically Signed: Stevie Espino MD at 11:01 EDT ,
[2022-06-05 10:07] VITALS: BMI 33.3
--- NOTE | 2022-06-05 10:35 | CASEMGMT ---
Addendum entered by Deb Nolan 06/05/22 16:25: Pt does not have a PCP and does not see any specialists. Pt and provided w/local PCP directory and encouraged to get established w/a PCP. Original Note: RN?CM?[employer]CH[employer]IC?CM?to room to meet with patient for initial transition planning/care coordination?assessment.?RN?CM?introduced self and role at [facility].? Pt voices understanding and consents to?assessment?at this time.? Pt sitting up in chair in room w/. Pt is A/O at this time and answers all questions appropriately.?? Care providers, pharmacy, and demographics verified/updated at this time. Preferred [facility]acy:[facility] Insurance: [place] Prescription Benefit:?Yes Living Will/HPOA:?Pt does not currently have LW/HCPOA and declines info at this time.? Pt made aware that he can contact as an out-pt and make appt in the future if he decides he would like to talk with someone about this or would like to utilize [facility] social work for advanced directive completion. LNOK: , [place] Living Arrangements: Lives w/ in 2-story home. Independent. Transportation:?Pt states drives self and states no transportation concerns at this time. also drives. ? DME: ? Denies using any DME HHC/SNF: No hx of either. No needs identified. Pt wishes to return home and states has no concerns with going home at time of discharge.? CM?to follow for any discharge planning/needs.? Pt and voice no concerns/needs at this time.? Advised them to ask for?CM?if any questions/concerns/needs arise.? PLAN:??Home Alfred BARCLAYN?RN?CM
[2022-06-05 13:09] VITALS: BP 165/93; PULSE 78; RESP 16; TEMP 36.8; O2SAT 98
--- NOTE | 2022-06-05 13:11 | NURSING ---
NIH late due to pt being down at MRI.
--- NOTE | 2022-06-05 13:14 | TELEMED_ITS ---
[facility] Tele[facility] has confirmed receipt of a request for visit. This document confirms receipt of the order initiating the consult. To find the results of the consultation, please view the patient's reports for the scanned Telemed Consult.
[2022-06-05] MEDS: Lisinopril 20 MG Tablet PO (15:16)
[2022-06-05] MEDS: amLODIPine 2.5 MG Tablet PO (15:16)
--- NOTE | 2022-06-05 15:26 | CHAPLAIN ---
Type of Pastoral Visit _x__ Initial Visit ___ Follow-up Visit ___ On-call Visit ___ General Patient Visit ___ Spiritual Assessment ___ Family Conference ___ Bereavement ___ Rapid Response ___ Code Blue ___ Other (describe below) Pastoral Care Referral From _x__ Patient ___ Family ___ Nurse ___ Physician ___ King Maker ___ [place] ___ Other (describe below) Sacrament/Intervention _x__ Active listening ___ Anointing ___ Taoist ___ Bereavement ___ Communion _x__ Adina exploration ___ ___ Life review _x__ Prayer ___ Reconciliation ___ Sacrament of Sick _x__ Supportive presence ___ Wedding ___ Other (describe below) Pastoral Comments patient gives some review of past health issues; pt admits to anxiety at being in hospital although in before for heart procedures and surgery; spouse is with him and giving support; pt admits that more lifestyle changes may be coming for him; pt feeling better now than before; pt and spouse welcome prayer support
[2022-06-05 15:29] VITALS: BMI 33.3
--- NOTE | 2022-06-05 15:29 | DS.PCM_ITS ---
Providers Date of Admission: 06/04/22 Date of Discharge: 06/05/22 Primary Care Physician: Anjali Primary Care Phys Consultations 06/04/22 14:15 Consult: Cardiology Routine Consulting Provider: Leidy Melendez Reason for Consult: Chest Pain EMERGENT Consult: No MD Notified: Yes Date Notified: 06/04/22 Time Notified: 14:15 Method of Notification: Text Reason For Visit: HYPERTENSIVE URGENCY, ELEVATED TROPONIN Diagnosis Discharge Diagnosis (1) Elevated troponin: Status: Acute Code(s): R77.8 - Other specified abnormalities of plasma proteins (2) Hypertensive urgency: Status: Acute Code(s): I16.0 - Hypertensive urgency (3) CAD (coronary artery disease): Status: Acute Code(s): I25.10 - Atherosclerotic heart disease of [place] coronary artery without angina pectoris (4) Dyslipidemia: Status: Acute Code(s): E78.5 - Hyperlipidemia, unspecified (5) Diplopia: Status: Acute Code(s): H53.2 - Diplopia (6) Noncompliance: Status: Acute Code(s): Z91.199 - Patient's noncompliance with other medical treatment and regimen due to unspecified reason Medications at Discharge Home Medications metoprolol tartrate 25 mg tablet 25 mg PO BID HEART 06/04/22 amlodipine 2.5 mg tablet 2.5 mg PO DAILY #30 tabs 06/05/22 aspirin 81 mg chewable tablet 81 mg PO BREAKFAST #0 tabs 06/05/22 atorvastatin 80 mg tablet 80 mg PO QHS #30 tabs 06/05/22 clopidogrel 75 mg tablet 75 mg PO DAILY #30 tabs 06/05/22 hydrochlorothiazide 12.5 mg tablet 12.5 mg PO DAILY #30 tabs 06/05/22 lisinopril 20 mg tablet 20 mg PO BID #60 tabs 06/05/22 Hospital Course Operations None Procedures - (CT head/CTA head neck/MRI brain) Summary of Care Provided Minutes Spent on Discharge: 36 Hospital Course: Mr Todd is a 57-year-old white male who presented to the emergency department at [facility] on 06/04/2022 with a chief complaint of diplopia. Patient reported that he was walking to his car at the gas station and subsequently realized his vision was impaired. He complained of having diplopia with both eyes open. He denied any other neurological changes including slurred speech, tingling, numbness, or weakness. He has a history of coronary artery disease but has not been compliant with any of his home medications for at least 2 weeks because he ran out. Per his he did not want to go see his doctor to get refills. Systolic blood pressures on presentation were over 200. Vital signs were otherwise unremarkable. His initial troponin was 99 and the imm ediately trended down to 81 with a repeat at 77. CT of his brain was unremarkable. CTA of his head and neck were unremarkable. Cardiology was consulted and lipids were obtained. His total cholesterol is 223, LDL 152, HDL 32 and his triglycerides were 194. He was placed on aspirin and maintained on his Brilinta however cardiology was consulted given his troponin elevation and they transition him from Brilinta to Plavix. They felt his troponin elevation was likely related to his acute hypertension and recommended a stress test. The patient wanted to proceed with this as an outpatient and cardiology was agreeable to this plan. Patient also did not want to undergo his echocardiogram while hospitalized and wanted to do this as an outpatient as well. We will have him follow-up with cardiology after discharge. His hemoglobin A1c was 5.7 indicating some insulin resistance but no diagnosis of diabetes as of this time. Serum creatinine was mildly elevated on presentation at 1.37 however improved to 1.21 on the day of discharge. He was restarted on home medications of lisinopril 20 mg p.o. twice daily, amlodipine 2.5 mg daily, metoprolol 25 mg daily, and we added hydrochlorothiazide 12.5 mg daily. An MRI of his brain was obtained and showed no acute infarct but does show chronic small vessel ischemic changes. He was evaluated by neurology during his hospital course and they felt his symptoms were most consistent with a TIA likely driven by his markedly elevated high blood pressure and recommended ongoing medical therapy with what we had already added. Outpatient follow-up was highly recommended for his echocardiogram and with neurology after discharge. We did write prescriptions for all his new medications including the above medications as well as atorvastatin 80 mg nightly, and Plavix 75 mg daily. We recommended [id number] aspirin 81 mg daily. He was able to be discharged home in stable condition on 06/05/2022. Again we recommended follow-up with neurology within the next month, cardiology within the next month, and that he establish with a primary care physician to be seen within the next 2 to 4 weeks or soon as possible. Discharge diagnoses: TIA Diplopia-resolved Hypertensive emergency Serum creatinine elevation Hyperlipidemia Hypertension Troponin elevation CAD Tobacco abuse Obesity Physical Exam Narrative Diplopia has resolved Const alert, oriented x3, no apparent distress and well nourished Constitutional Narrative: Obese, middle-aged, white male, at bedside, sitting up in bed appears comfortable, watching television, nontoxic General Appearance: cooperative, comfortable, well kempt and well developed Orientation / Consciousness: awake, oriented to person, oriented to place and oriented to time Exam Limitations: no limitations Nutritional Appearance: obese HEENT normocephalic, head/scalp atraumatic, hearing grossly normal bilaterally and moist oral mucous membranes HEENT Narrative: Mallampati 3, no thrush Eyes PERRL, EOMs intact bilaterally and conjunctivae normal Eyes Narrative: No scleral icterus Neck no lymphadenopathy, supple and no JVD Resp normal respiratory effort, no retractions, no use of accessory muscles and clear to auscultation bilaterally Resp Narrative: Diffusely diminished but clear Auscultation: Negative for rales, rhonchi or wheezes Cardio regular rate, regular rhythm, S1 normal heart sound, S2 normal heart sound, no murmurs, no rub, no gallops and no clicks GI normal to inspection, nondistended, normoactive bowel sounds, soft to palpation, non-tender and non-distended Extremity no clubbing, cyanosis or edema Extremity Narrative: 2+ pedal pulses Skin no rashes or lesions noted, no wounds, skin turgor normal and no jaundice Neuro oriented x3, moves all extremities and no focal motor deficits Speech: speech normal Psych affect normal Weight / BMI Weight Weight: 93.553 kg Body Mass Index (BMI) 33.3 ABG / Lab / Microbiology Data Result Diagrams: 06/05/22 04:48 06/05/22 04:48 Laboratory: Laboratory Results - last 24 hr 06/04/22 10:15: Hemoglobin A1c 5.7 H 06/04/22 16:45: Troponin I High Sens 77 06/05/22 04:48: WBC 12.2 H, RBC 7.70 H, Hgb 15.6, Hct 51.2, MCV 66.5 L, MCH 20.3 L, MCHC 30.5 L, RDW Std Deviation 38.0, RDW Coeff of Jacqueline 18.8 H, Plt Count 282, MPV 10.9, Immature Gran % (Auto) 0.600, Neut % (Auto) 63.1, Lymph % (Auto) 24.2, Morrison % (Auto) 9.3, Eos % (Auto) 2.1, Baso % (Auto) 0.7, Absolute Neuts (auto) 7.7, Absolute Lymphs (auto) 2.95, Nucleated RBC % 0 06/05/22 04:48: Sodium 137, Potassium 4.1, Chloride 105, Carbon Dioxide 25.0, Anion Gap 7, BUN 18, Creatinine 1.21, Estim Creat Clear Calc 61.52, Est GFR (MDRD) Af Amer 80, Est GFR (MDRD) Non-Af 66, BUN/Creatinine Ratio 14.9, Glucose 115 H, Calcium 9.2, Triglycerides 194, Cholesterol 223 H, LDL Cholesterol 152 H, VLDL Cholesterol 39, HDL Cholesterol 32 L Radiography Diagnostic Testing: Radiology Impression Brain MRI 06/04/22 14:12 IMPRESSION: 1. Involutional and mild chronic ischemic changes of the brain, as described above. 2. No demonstrated acute infarct or intracranial hemorrhage or significant abnormality 3. Moderate mucus opacification of the bilateral ethmoid air cells and a moderate-sized mucus retention cyst of the right maxillary sinus. Electronically Signed: Yuniel Smith MD at 13:19 EDT Reading Location ID and State: [address] [place] [address] , Service support , D/C Instructions Discharge Diet: Low fat / Low cholesterol Discharge Activity: Return to Normal Activity Return to work on: 06/06/22 Meaningful Use Info Meaningful Use Diagnoses (Choose all that apply): None applicable Discharge Plan Admission Admit Date/Time: 06/04/22 11:43 Primary Reason for Your Visit: Diplopia/double vision Attending Provider: Paola Arvizu Primary Care Provider: Care Physician,No Primary Consulting Providers: Leidy Melendez ; Colleen Blanco Instructions Additional Instructions / Restrictions: 1. Please establish with a primary care physician and schedule appointment to be seen as soon as possible after discharge. Discharge Orders/Prescriptions Prescriptions: New atorvastatin 80 mg Tablet 80 mg PO QHS Qty: 30 5RF amlodipine 2.5 mg Tablet 2.5 mg PO DAILY Qty: 30 5RF clopidogrel 75 mg Tablet 75 mg PO DAILY Qty: 30 11RF aspirin 81 mg Tablet,Chewable 81 mg PO BREAKFAST Qty: 0 0RF lisinopril 20 mg Tablet 20 mg PO BID Qty: 60 5RF hydrochlorothiazide 12.5 mg tablet 12.5 mg PO DAILY Qty: 30 5RF Continued metoprolol tartrate 25 mg Tablet 25 mg PO BID Discontinued atorvastatin 40 mg Tablet 80 mg PO DAILY lisinopril 20 mg Tablet 20 mg PO QHS Label Comments: PT STATES TAKES 20 MG IN THE EVENING AND 10 MG IN THE AM lisinopril 10 mg Tablet 10 mg PO DAILY Label Comments: PT STATES TAKES 20 MG IN THE EVENING AND 10 MG IN THE AM Brilinta 90 mg Tablet 90 mg PO BID Referrals / Follow Up: Leidy Melendez MD [Med Staff - Active Staff] - Within 1 Month Mike Segovia MD [Non-Staff -Ordering Privileges] - Within 1 Month (For TIA) Care Physician,No Primary [Primary Care Provider] - Disposition Disposition (needs filled in before D/C Order can be placed): Home, Self Care Charges/Coding Visit Charges Inpatient E&M: 35877 Disch Hosp >30min
[2022-06-05 16:36] VITALS: BP 146/80
== END 2022-06-05 17:44 | disposition home or self-care (01) | DRG 69 ==
LOC: ED 11:29 → PCU 12:10
PROVIDERS: Admitting Provider Student in an Organized Health Care Education/Training Program; Emergency Provider Emergency Medicine; Visit Provider Internal Medicine
DX: G45.9 Transient cerebral ischemic attack, unspecified (principal); I16.1 Hypertensive emergency; I45.2 Bifascicular block; E66.9 Obesity, unspecified; I16.0 Hypertensive urgency; E78.5 Hyperlipidemia, unspecified; H53.2 Diplopia; F17.210 Nicotine dependence, cigarettes, uncomplicated; I10 Essential (primary) hypertension; I25.10 Atherosclerotic heart disease of native coronary artery without angina pectoris; R77.8 Other specified abnormalities of plasma proteins; N28.9 Disorder of kidney and ureter, unspecified; Z79.02 Long term (current) use of antithrombotics/antiplatelets; Z79.82 Long term (current) use of aspirin; Z95.5 Presence of coronary angioplasty implant and graft; Z91.199 Patient's noncompliance with other medical treatment and regimen due to unspecified reason; Z68.34 Body mass index [BMI] 34.0-34.9, adult
CPT/HCPCS: 36415; 70450; 70496; 70498; 70551; 71045; 80048; 80061; 82962; 83036; 84484; 85025; 85610; 85730; 93005; 94762; 97802; 99285; 99406; Q9967; A4216